=== PATIENT | male | born 1960 | race Caucasian/White ===

== ENCOUNTER 2017-03-13 13:58 | Outpatient (CLI) | payer BC ==
--- NOTE | 2017-03-13 15:49 | DIAGNOSTIC IMAGING REPORT ---
PROCEDURE: MR LUMBAR SPINE W/O CONTRAST INDICATION: CHRONIC LOW BACK PAIN TECHNIQUE: Noncontrast T1, T2, and STIR sagittal images. T1 and T2 axial images. COMPARISON: None. FINDINGS: Normal alignment without fracture. Probable L5 transitional vertebrae, correlate with x-rays. Mild degenerative changes with multilevel disc desiccation and disc space narrowing at L1 to L2-3. Schmorl's nodes T11 and L1. Normal conus. Paraspinal soft tissues are normal. L1-2: Small left foraminal disc protrusion with mild facet arthropathy. Mild left foraminal stenosis. No spinal stenosis. L2-3: Moderate to large left foraminal disc protrusion with facet arthropathy. There is moderately severe foraminal stenosis. No spinal stenosis. L3-4: Mild broad-based disc bulge and facet arthropathy resulting in moderate bilateral foraminal stenosis. There is no spinal stenosis. L4-5: Mild facet arthropathy. L5-S1: Probable transitional L5. No foraminal or spinal stenosis. IMPRESSION: 1. Mild degenerative changes 2. L1-2 left foraminal disc protrusion with mild left foraminal stenosis 3. L2-3 left foraminal disc protrusion with moderately severe left foraminal stenosis 4. L3-4 broad-based disc bulge with moderate bilateral foraminal stenosis.
== END 2017-03-13 23:00 | disposition home or self-care (01) ==
LOC: MRI SRH 13:58
DX: M51.26 Other intervertebral disc displacement, lumbar region (principal); M48.06 Spinal stenosis, lumbar region